=== PATIENT | female | born 1985 | race Asian ===

== ENCOUNTER 2019-09-18 07:15 | Inpatient (IN) | payer OTHER ==
[~2019-09-18] VITALS: Ht 165.1 cm; Wt 63.6 kg
[2019-09-18] MEDS ORDERED: OXYTOCIN 30U/ 0.9% NaCL 500ML 500 ML IV PRN (07:34)
[2019-09-18] MEDS ORDERED: OXYTOCIN 30U/ 0.9% NaCL 500ML 500 ML IV ONE (07:34)
[2019-09-18] MEDS ORDERED: FENTANYL PF 100 MCG/2ML IVPush PRN (08:00)
[2019-09-18] MEDS ORDERED: ONDANSETRON 2MG/ML, 2ML IVPush PRN (08:00)
[2019-09-18] MEDS ORDERED: TERBUTALINE 1 MG/ML, 1ML IVPush PRN (08:00)
[2019-09-18] MEDS ORDERED: TERBUTALINE 1 MG/ML, 1ML SQ PRN (08:00)
[2019-09-18 08:03] LABS: BASOPHILS # (AUTO) 0.01 x10^3/uL (0-0.1); BASOPHILS % (AUTO) 0 % (0-1); EOSINOPHILS # (AUTO) 0.02 x10^3/uL (0-0.4); EOSINOPHILS % (AUTO) 0 % (1-7); LYMPHOCYTES # (AUTO) 0.91 x10^3/uL (1-3.4); LYMPHOCYTES % (AUTO) 13 % (22-44); MD NO; MEAN CORPUSCULAR HEMOGLOBIN 30.6 pg (27.0-34.8); MEAN CORPUSCULAR HGB CONC 33.2 g/dL (32.4-35.8); MEAN CORPUSCULAR VOLUME 92.2 fL (80-100); MEAN PLATELET VOLUME 8.3 fL (7.4-10.4); MONOCYTES # (AUTO) 0.46 x10^3/uL (0.2-0.8); MONOCYTES % (AUTO) 6 % (2-9); NEUTROPHILS # (AUTO) 5.77 x10^3/uL (1.8-6.8); NEUTROPHILS % (AUTO) 81 % (42-75); PLATELET COUNT 248 x10^3/uL (130-400); RED BLOOD COUNT 4.01 x10^6/uL (3.82-5.3); RED CELL DISTRIBUTION WIDTH 13.5 % (9.6-15.2)
[2019-09-18] MEDS: LACTATED RINGERS 1,000 ML IV SCH ×4 (08:33→22:00)
[2019-09-18] MEDS ORDERED: OXYTOCIN 30U/ 0.9% NaCL 500ML 500 ML ONE (08:34)
[2019-09-18] MEDS ORDERED: FENTANYL PF 100 MCG/2ML ONE ×3 (08:45→21:28)
[2019-09-18] MEDS ORDERED: MISOPROSTOL 200 MCG TABLET ONE (09:05)
[2019-09-18] MEDS ORDERED: NEWBORN KIT ONE (09:05)
[2019-09-18] MEDS ORDERED: LIDOCAINE 1%, 20ML ONE (09:05)
[2019-09-18] MEDS ORDERED: FENTANYL/BUPIV./NS/PF 250 ML EPIDCONT ONE (09:39)
[2019-09-18] MEDS ORDERED: BUPIVACAINE 0.25% ONE (09:54)
[2019-09-18] MEDS: D5%-LACTATED RINGERS 1,000 ML IV SCH ×2 (12:00→15:34)
[2019-09-18] MEDS ORDERED: SODIUM CITRATE/CITRIC ACID 30 ML UDC ONE ×2 (17:48→20:23)
[2019-09-18] MEDS ORDERED: METOCLOPRAMIDE 5 MG/ML, 2ML ONE ×2 (17:48→20:23)
[2019-09-18] MEDS ORDERED: AZITHROMYCIN 500 MG in SODIUM CHLORIDE 0.9% 250 ML IV ONE (18:30)
[2019-09-18] MEDS ORDERED: CEFAZOLIN 1,000 MG ONE (20:29)
[2019-09-18] MEDS ORDERED: OXYTOCIN 10 UNITS/ML, 1ML ONE (20:29)
[2019-09-18] MEDS ORDERED: ONDANSETRON 2MG/ML, 2ML ONE (20:29)
[2019-09-18] MEDS ORDERED: HYDROmorphone 2 MG/ML, 1ML ONE (20:30)
[2019-09-18] MEDS ORDERED: LIDOCAINE-MPF 2% ,5ML ONE ×3 (20:30→21:31)
[2019-09-18] MEDS ORDERED: MEPERIDINE/PF 50 MG/ML IVPush PRN (22:00)
[2019-09-18] MEDS ORDERED: MISOPROSTOL 200 MCG TABLET PR PRN (22:00)
[2019-09-18] MEDS ORDERED: OXYcodone IR 5MG TABLET PO PRN (22:00)
[2019-09-18] MEDS ORDERED: ONDANSETRON 2MG/ML, 2ML IV PRN (22:00)
[2019-09-18] MEDS: KETOROLAC 30 MG/1 ML IV SCH (22:00)
[2019-09-18] MEDS: OXYTOCIN 30U/ 0.9% NaCL 500ML 500 ML IV SCH (22:36)
[2019-09-18] MEDS ORDERED: METOCLOPRAMIDE 5 MG/ML, 2ML IV ONE (23:00)
[2019-09-18] MEDS ORDERED: SODIUM CITRATE/CITRIC ACID 30 ML UDC PO ONE (23:00)
[2019-09-18] MEDS ORDERED: LACTATED RINGERS 1,000 ML IVBOLUS ONE (23:00)
[2019-09-18 23:30] VITALS: BP 112/65
[2019-09-19] MEDS ORDERED: CALCIUM CARBONATE 500 MG TAB.CHEW PO PRN
[2019-09-19] MEDS: LACTATED RINGERS 1,000 ML IV SCH ×5 (03:00→22:00)
[2019-09-19 03:16] VITALS: BP 106/69
[2019-09-19] MEDS: KETOROLAC 30 MG/1 ML IV SCH ×4 (04:15→22:35)
[2019-09-19 05:27] LABS: MEAN CORPUSCULAR HEMOGLOBIN 30.3 pg (27.0-34.8); MEAN CORPUSCULAR VOLUME 91.7 fL (80-100); MEAN PLATELET VOLUME 7.9 fL (7.4-10.4); PLATELET COUNT 205 x10^3/uL (130-400); RED CELL DISTRIBUTION WIDTH 13.3 % (9.6-15.2)
[2019-09-19 06:14] LABS: MD YES
[2019-09-19 06:16] LABS: BAND#(MANUAL) 1.95 x10^3/uL; BANDS%(MANUAL) 13 % (0-7); LYMPH#(MANUAL) 1.05 x10^3/uL (1-3.4); LYMPHS% (MANUAL) 7 % (22-44); MONOS% (MANUAL) 8 % (2-9); SEGS% (MANUAL) 72 % (42-75)
[2019-09-19 06:18] LABS: <PLATELET ESTIMATE> ADEQUATE; <PLT MORPHOLOGY> NORMAL PLT MORPH; <RBC MORPHOLOGY> NORMAL
[2019-09-19 07:20] VITALS: BP 104/62
[2019-09-19] MEDS: OXYTOCIN 30U/ 0.9% NaCL 500ML 500 ML IV SCH ×2 (08:00→18:00)
[2019-09-19] MEDS: OXYcodone IR 5MG TABLET PO PRN ×3 (08:39→20:48)
[2019-09-19] MEDS: PRENATAL VIT/IRON/FA 1 EACH TABLET PO SCH (09:00)
[2019-09-19 12:30] VITALS: BP 99/62
[2019-09-19 16:00] VITALS: BP 102/66
[2019-09-19 20:00] VITALS: BP 95/57
[2019-09-19] MEDS: DOCUSATE 100 MG CAPSULE PO PRN (20:46)
[2019-09-19] MEDS: SIMETHICONE 80 MG CHEW TAB PO PRN (20:46)
[2019-09-20] MEDS: SIMETHICONE 80 MG CHEW TAB PO PRN ×2 (02:53→09:58)
[2019-09-20] MEDS: OXYcodone IR 5MG TABLET PO PRN ×2 (02:54→19:13)
[2019-09-20] MEDS: LACTATED RINGERS 1,000 ML IV SCH ×5 (04:00→22:00)
[2019-09-20] MEDS: OXYTOCIN 30U/ 0.9% NaCL 500ML 500 ML IV SCH ×2 (04:00→14:00)
[2019-09-20] MEDS: KETOROLAC 30 MG/1 ML IV SCH ×3 (05:53→17:52)
[2019-09-20 08:29] VITALS: BP 110/69
[2019-09-20] MEDS: PRENATAL VIT/IRON/FA 1 EACH TABLET PO SCH (10:02)
[2019-09-20] MEDS: DOCUSATE 100 MG CAPSULE PO PRN ×2 (10:02→19:13)
[2019-09-20 19:15] VITALS: BP 96/55
[2019-09-21] MEDS: IBUPROFEN 600 MG TABLET PO PRN ×3 (00:10→22:25)
[2019-09-21] MEDS: LACTATED RINGERS 1,000 ML IV SCH ×4 (06:00→14:00)
[2019-09-21] MEDS: OXYcodone IR 5MG TABLET PO PRN (06:13)
[2019-09-21] MEDS ORDERED: DIPH,PERTUSS(ACELL),TET VAC/PF NC IM-VACC ONE ×2 (06:30→14:18)
[2019-09-21 08:00] VITALS: BP 98/60
[2019-09-21] MEDS: PRENATAL VIT/IRON/FA 1 EACH TABLET PO SCH (08:01)
[2019-09-21] MEDS: DOCUSATE 100 MG CAPSULE PO PRN ×2 (08:01→22:27)
[2019-09-21] MEDS: OXYTOCIN 30U/ 0.9% NaCL 500ML 500 ML IV SCH ×2 (10:00)
[2019-09-21 11:11] VITALS: BP 102/60
[2019-09-21] MEDS: SIMETHICONE 80 MG CHEW TAB PO PRN (14:24)
[2019-09-21 20:00] VITALS: BP 117/67
[2019-09-21] MEDS ORDERED: ACETAMINOPHEN 325 MG TABLET PO PRN (22:30)
[2019-09-22 00:05] VITALS: BP 116/73
[2019-09-22 04:10] VITALS: BP 108/66
[2019-09-22] MEDS: IBUPROFEN 600 MG TABLET PO PRN (08:29)
[2019-09-22] MEDS: DOCUSATE 100 MG CAPSULE PO PRN (08:29)
[2019-09-22] MEDS: PRENATAL VIT/IRON/FA 1 EACH TABLET PO SCH (08:29)
[2019-09-22 08:30] VITALS: BP 126/85
[2019-09-22] MEDS ORDERED: FERR325T23 PO (12:05)
[2019-09-22] MEDS ORDERED: DOCU-131 PO (12:05)
[2019-09-22] MEDS ORDERED: IBUP-1222 PO (12:06)
[2019-09-22] MEDS ORDERED: OXYC-302 PO (12:08)
== END 2019-09-22 14:38 | disposition home or self-care (01) | DRG 788 ==
LOC: LDOP 07:15 → LDIP 07:39 → 2NW 23:25
PROVIDERS: ADMIT Obstetrics & Gynecology; ATTEND Obstetrics & Gynecology
PROC: 10D00Z1 Extraction of Products of Conception, Low, Open Approach (ICD-10-PCS; principal; 2019-09-18)
DX: O76 Abnormality in fetal heart rate and rhythm complicating labor and delivery (principal); O62.1 Secondary uterine inertia; O32.2XX0 Maternal care for transverse and oblique lie, not applicable or unspecified; Z37.0 Single live birth; Z3A.38 38 weeks gestation of pregnancy
CPT/HCPCS: 36415; J3490; J7121; 82803; 85025; 86592; 86850; 86900; 88307; 90715; G0378; J0456; J0690; J1170; J1885; J2405; J3010; J2590; J2765; J7050; J7120